=== PATIENT | female | born 2000 | race Hispanic/Latino ===

== ENCOUNTER 2022-09-23 04:34 | Emergency (ER) | payer BC ==
--- OUTSIDE RECORDS SUMMARY | 2022-09-23 04:37 | XMS REPORT | Continuity of Care Document ---
:2000 Author Organization [facility] t Address [address] [place] [address] Care Team Providers Name Role Phone Pob1, Acute Care Clinic Attending Clinician Unavailable Chance SERRANO Radha Attending Clinician RADHA FLETCHER Attending Clinician Unavailable Problems Condition Condition Condition Status Onset Resolution Last Treating Co mments Source Name Details Category Date Date Treatment Clinician Date No known No known Disease Unive rs active active ity of problems problems [facility] Allergies, Adverse Reactions, Alerts Allergy Allergy Status Severity Reaction(s) Onset Inactive Treating Comm ents Source Name Type Date Date Clinician NO KNOWN Drug Active Univers ALLERGIE Class ity of [facility] Social History Social Habit Start Date Stop Date Quantity Comments [facility] Smoking Status Start Date Stop Date Source Unknown if ever smoked [facility] Medications Ordered Filled Start Stop Current Ordering Indication Dosage Frequency Signature Comments Components Source Medication Medication Date Date Medication? Clinician (SIG) Name Name No known No Univers medications [facility] Vital Signs Vital Name Observation Time Observation Value Comments Source Systolic blood 2020-02-19 15:54:00 147 mm[Hg] Univer sity of pressure [facility] Diastolic blood 2020-02-19 15:54:00 87 mm[Hg] Unive rsity of [facility] Respiratory rate 2020-02-19 15:53:00 18 /min [facility] Body weight 2020-02-19 15:53:00 95.255 kg [facility] Oxygen saturation in 2020-02-19 15:53:00 99 /min [facility] Arterial blood by [facility] Pulse oximetry Branch Heart rate 2020-02-19 15:53:00 90 /min [facility] Body temperature 2020-02-19 15:53:00 36.83 Gricelda [facility] Procedures This patient has no known procedures. Encounters Start End Encounter Admission Attending Care Care Encounter Source Date/Time Date/Time Type Type Clinicians Facility Department ID 2020-02-19 2020-02-19 Urgent Pob1, Acute Care Clinic [facility] 1. [id number] Univers 10:42:48 11:02:48 [id number] [employer] [facility] [id number] Wero as Shavon [id number] [address] 2020-02-19 2020-02-19 Outpatient R [facility] [id number] Univers 11:00:00 11:00:00 [facility] Results This patient has no known results.
[2022-09-23] MEDS ORDERED: MORPHINE 4 MG/ML SYR ONE (04:50)
[2022-09-23] MEDS ORDERED: NA CHLORIDE 0.9% 1,000 ML ONE ×2 (04:51→08:11)
[2022-09-23] MEDS ORDERED: ONDANSETRON 4 MG/2 ML VIAL ONE ×2 (04:51→06:31)
[2022-09-23 05:35] LABS: Absolute Lymphocytes (CBC) 1.3 K/uL (0.7-4.9); Hematocrit 40.5 % (36.0-45.0); Lymphocytes % 7.4 % (15.3-44.8); MCV 78.1 fL (80-100); MPV 9.1 fL (7.6-11.3); RBC Red Blood Cell Count 5.18 M/uL (3.86-4.86)
[2022-09-23 05:49] LABS: Albumin 3.8 g/dL (3.4-5.0); Bilirubin Total 0.5 mg/dL (0.2-1.0); Potassium 3.5 mmol/L (3.5-5.1); Protein, Total 8.4 g/dL (6.4-8.2)
[2022-09-23] MEDS ORDERED: FAMOTIDINE 20 MG/2 ML VIAL IV ONE (05:49)
[2022-09-23 05:54] LABS: Urine Blood 1+ (Negative); Urine Glucose Negative (Negative); Urine Protein Negative (Negative); Urine Specific Gravity 1.025 (1.005-1.030); Urine pH 5.5 (5.0-7.0)
[2022-09-23 06:07] LABS: Urine Bacteria <20 /HPF (<20); Urine Mucus Slight /HPF (None Seen); Urine RBC <5 /HPF (None Seen)
[2022-09-23] MEDS ORDERED: CEFTRIAXONE 1000 MG/VIAL ONE (06:31)
--- NOTE | 2022-09-23 07:13 | EDPHYS ---
Physician Documentation [facility] Name: Conchis Parsons Age: 21 yrs Sex: Female : 2000 Arrival Date: 09/23/2022 Time: 04:38 Bed 5 Private MD: ED Physician Jordin Rosenberg HPI: 09/23 05:12 This 21 yrs old Female presents to ER via Ambulatory with complaints of elisa Nausea/Vomiting. 05:12 The patient presents to the emergency department with nausea, vomiting, that is elisa continuous. Onset: The symptoms/episode began/occurred 1 day(s) ago. Possible causes: unknown. The symptoms are aggravated by nothing. The symptoms are alleviated by nothing. Associated signs and symptoms: Pertinent positives: abdominal pain, nausea, vomiting. Severity of symptoms: At their worst the symptoms were mild moderate in the emergency department the symptoms are unchanged. The patient has experienced similar episodes in the past, a few times. TOEING STOCKINGS: 04:53 LMP 07/2022 kd3 Historical: - Allergies: 04:53 No Known Allergies; kd3 - Home Meds: 04:53 None [Active]; kd3 - PMHx: 04:53 None; kd3 - Immunization history:: Adult Immunizations up to date, Client reports receiving the 2nd dose of the Covid vaccine. - Social history:: Smoking status: unknown. ROS: 05:15 Constitutional: Negative for fever, chills, and weight loss, Eyes: Negative for injury, elisa pain, redness, and discharge, ENT: Negative for injury, pain, and discharge, Neck: Negative for injury, pain, and swelling, Cardiovascular: Negative for chest pain, palpitations, and edema, Respiratory: Negative for shortness of breath, cough, wheezing, and pleuritic chest pain, Back: Negative for injury and pain, : Negative for injury, bleeding, discharge, and swelling, MS/Extremity: Negative for injury and deformity, Skin: Negative for injury, rash, and discoloration, Neuro: Negative for headache, weakness, numbness, tingling, and seizure, Psych: Negative for depression, anxiety, suicide ideation, homicidal ideation, and hallucinations, Allergy/Immunology: Negative for hives, rash, and allergies, Endocrine: Negative for neck swelling, polydipsia, polyuria, polyphagia, and marked weight changes, Hematologic/Lymphatic: Negative for swollen nodes, abnormal bleeding, and unusual bruising. 05:15 Abdomen/GI: Positive for abdominal pain, nausea and vomiting, of the epigastric area and right upper quadrant. 07:15 Abdomen/GI: Positive for nausea, vomiting, diarrhea. elisa Exam: 05:15 Constitutional: This is a well developed, well nourished patient who is awake, alert, elisa and in no acute distress. Head/Face: Normocephalic, atraumatic. Eyes: Pupils equal round and reactive to light, extra-ocular motions intact. Lids and lashes normal. Conjunctiva and sclera are non-icteric and not injected. Cornea within normal limits. Periorbital areas with no swelling, redness, or edema. ENT: Nares patent. No nasal discharge, no septal abnormalities noted. Tympanic membranes are normal and external auditory canals are clear. Oropharynx with no redness, swelling, or masses, exudates, or evidence of obstruction, uvula midline. Mucous membranes moist. Neck: Trachea midline, no thyromegaly or masses palpated, and no cervical lymphadenopathy. Supple, full range of motion without nuchal rigidity, or vertebral point tenderness. No Meningismus. Chest/axilla: Normal chest wall appearance and motion. Nontender with no deformity. No lesions are appreciated. Cardiovascular: Regular rate and rhythm with a normal S1 and S2. No gallops, murmurs, or rubs. Normal PMI, no JVD. No pulse deficits. Respiratory: Lungs have equal breath sounds bilaterally, clear to auscultation and percussion. No rales, rhonchi or wheezes noted. No increased work of breathing, no retractions or nasal flaring. Back: No spinal tenderness. No costovertebral tenderness. Full range of motion. Female : Normal external genitalia. Skin: Warm, dry with normal turgor. Normal color with no rashes, no lesions, and no evidence of cellulitis. MS/ Extremity: Pulses equal, no cyanosis. Neurovascular intact. Full, normal range of motion. Neuro: Awake and alert, GCS 15, oriented to person, place, time, and situation. Cranial nerves II-XII grossly intact. Motor strength 5/5 in all extremities. Sensory grossly intact. Cerebellar exam normal. Normal gait. Psych: Awake, alert, with orientation to person, place and time. Behavior, mood, and affect are within normal limits. 05:15 Abdomen/GI: Inspection: abdomen appears normal, Bowel sounds: normal, Palpation: moderate abdominal tenderness, in the epigastric area and right upper quadrant, Liver: no appreciated palpable abnormalities, Hernia: not appreciated. Vital Signs: 04:49 BP 140 / 77; Pulse 123; Resp 21; Temp 98.1(O); Pulse Ox 100% on R/A; Weight 108.86 kg; kd3 Height 5 ft. 1 in. (154.94 cm); 05:30 BP 138 / 72; Pulse 108; Resp 19; Pulse Ox 99% on R/A; aa9 07:00 BP 132 / 75; Pulse 105; Resp 18 S; Pulse Ox 100% on R/A; as6 08:36 BP 127 / 75; Pulse 110; Resp 17; ll1 10:06 BP 134 / 91; Pulse 100; Resp 17; Pulse Ox 100% ; Pain 4/10; ll1 04:49 Body Mass Index 45.35 (108.86 kg, 154.94 cm) kd3 MDM: 04:40 Patient medically screened. [facility] 05:18 Differential diagnosis: Nonspecific abd pain, gastritis, cholecystitis, pancreatitis, elisa diverticulitis, gastroenteritis. Data reviewed: vital signs, nurses notes, lab test result(s), radiologic studies, CT scan, plain films. Consideration of Admission/Observation Patient was admitted/placed on observation. Escalation of care including admission/observation considered. I considered the following discharge prescriptions or medication management in the emergency department Medications were administered in the Emergency Department. See OCT. 09/23 04:44 Order name: CBC with Diff; Complete Time: 05:43 [facility] 09/23 04:44 Order name: CMP; Complete Time: 05:53 [facility] 09/23 04:44 Order name: Lipase; Complete Time: 05:53 [facility] 09/23 04:44 Order name: Urine Microscopic Only; Complete Time: 06:25 [facility] 09/23 05:54 Order name: Urine Dipstick-Ancillary; Complete Time: 06:25 [facility] 09/23 04:57 Order name: CT Abd/Pelvis - IV Contrast Only [facility] 09/23 04:57 Order name: US Abdomen Limited [facility] 09/23 06:10 Order name: Urine Culture [facility] 09/23 04:44 Order name: IV Saline Lock; Complete Time: 05:03 [facility] 09/23 04:44 Order name: Labs collected and sent; Complete Time: 05:03 [facility] 09/23 04:44 Order name: Urine Dipstick-Ancillary (obtain specimen); Complete Time: 05:54 [facility] 09/23 04:44 Order name: Urine Test (obtain specimen); Complete Time: 05:54 [facility] Administered Medications: 04:52 Drug: Zofran (Ondansetron) 4 mg Route: IVP; Site: right antecubital; aa9 05:31 Follow up: Response: No adverse reaction kd3 04:56 Drug: morphine 4 mg Route: IVP; Infused Over: 4 mins; Site: right antecubital; aa9 05:31 Follow up: Response: No adverse reaction kd3 05:02 Drug: NS 0.9% 1000 ml Route: IV; Rate: 1 bolus; Site: right antecubital; aa9 07:21 Follow up: Response: No adverse reaction; IV Status: Completed infusion; IV Intake: ll1 1000ml 05:54 Drug: Pepcid (famotidine) 20 mg Route: IVP; Site: right antecubital; aa9 07:21 Follow up: Response: No adverse reaction ll1 06:33 Drug: Zofran (Ondansetron) 4 mg Route: IVP; Site: right antecubital; as6 07:22 Follow up: Response: No adverse reaction; Nausea unchanged; RASS: Alert and Calm (0) ll1 06:33 Drug: Rocephin (cefTRIAXone) 1 grams Route: IV; Rate: per protocol; Site: right as6 antecubital; 07:22 Follow up: Response: No adverse reaction; IV Status: Completed infusion; IV Intake: [id number] 07:21 Drug: Phenergan (promethazine) 25 mg Route: IM; Site: right gluteus; ll1 08:13 Follow up: Response: No adverse reaction; Nausea unchanged; RASS: Alert and Calm (0) ll1 08:10 Drug: NS 0.9% 1000 ml Route: IV; Rate: 1 bolus; Site: right antecubital; ll1 10:06 Follow up: Response: No adverse reaction; IV Status: Completed infusion; IV Intake: ll1 1000ml 08:10 Drug: Reglan (metoCLOPramide) 10 mg Route: IVP; Site: right antecubital; ll1 10:06 Follow up: Response: No adverse reaction; Nausea is decreased; RASS: Alert and Calm (0) ll1 Disposition Summary: 09/23/22 07:11 Discharge Ordered Location: Home elisa Problem: new elisa Symptoms: have improved elisa Condition: Stable elisa Diagnosis - Epigastric abdominal tenderness elisa - Vomiting elisa - Elevated white blood cell count elisa - UTI/ Urinary tract infection, site not specified elisa - Diarrhea, unspecified elisa Followup: elisa - With: Private Physician - When: 2 - 3 days - Reason: Recheck today's complaints, Re-evaluation by your physician Followup: elisa - With: - When: 2 - 3 days - Reason: Recheck today's complaints, Re-evaluation by your physician Discharge Instructions: - Discharge Summary Sheet elisa - Abdominal Pain, Adult elisa - Abdominal Pain, Adult, Qswl-di-Wpyo elisa - Urinary Tract Infection, Adult elisa - Urinary Tract Infection, Adult, Otld-zl-Cvki elisa - Diarrhea, Adult elisa - Vomiting, Adult elisa Forms: - Medication Reconciliation Form [facility] - Thank You Letter [facility] - Antibiotic Education [facility] - Prescription Opioid Use [facility] - Work release form ll1 Prescriptions: - Pepcid 20 mg Oral Tablet - take 1 tablet by ORAL route every 12 hours for 10 days; 20 tablet; Refills: 0, [facility] Product Selection Permitted - Zofran 4 mg Oral Tablet - take 1 tablet by ORAL route every 12 hours As needed; 20 tablet; Refills: 0, [facility] Product Selection Permitted - dicyclomine 20 mg Oral Tablet - take 1 tablet by ORAL route 4 times per day; 28 tablet; Refills: 0, Product [facility] Selection Permitted - promethazine 25 mg Oral Tablet - take 1 tablet by ORAL route every 6 hours As needed; 20 tablet; Refills: 0, [facility] Product Selection Permitted - Cipro 250 mg Oral Tablet - take 1 tablet by ORAL route every 12 hours; 14 tablet; Refills: 0, Product [facility] Selection Permitted Signatures: Dispatcher [employer] Jordin Zavala MD MD cha Lewis, Lynsay RN RN ll1 Malachi Machado RN RN as6 Brittany Bermudez RN RN kd3 Elise Goyal RN RN aa9
--- NOTE | 2022-09-23 07:13 | ER ---
Nurse's Notes [facility] Name: Conchis Parsons Age: 21 yrs Sex: Female : 2000 Arrival Date: 09/23/2022 Time: 04:38 Bed 5 Private MD: Diagnosis: Epigastric abdominal tenderness;Vomiting;Elevated white blood cell count;UTI/ Urinary tract infection, site not specified;Diarrhea, unspecified Presentation: 09/23 04:49 Chief complaint: Patient states: Last night my stomach started hurting and i went to 3 bed to try and ignore it because i needed to go to work today. I woke back up around 2 this morning and started to vomit and have diarrhea. I had some pretty intense vomiting and i felt like i couldn't catch my breath. Now i feel like my stomach is having spasms. Coronavirus screen: Vaccine status: Patient reports receiving the 2nd dose of the covid vaccine. Coronavirus screen: Vaccine status: Patient reports receiving the 2nd dose of the covid vaccine. [employer]. Ebola Screen: No symptoms or risks identified at this time. Initial Sepsis Screen: Does the patient meet any 2 criteria? HR > 90 bpm. No. Patient's initial sepsis screen is negative. Does the patient have a suspected source of infection? No. Patient's initial sepsis screen is negative. Risk Assessment: Do you want to hurt yourself or someone else? Patient reports no desire to harm self or others. Onset of symptoms was September 23, 2022. 04:49 Method Of Arrival: Ambulatory kd3 04:49 Acuity: SHARRI 3 kd3 Triage Assessment: 04:53 General: Appears uncomfortable, Behavior is calm, cooperative. Pain: Complains of pain kd3 in epigastric area. Neuro: Level of Consciousness is awake, alert, obeys commands, Oriented to person, place, time, situation. GI: Reports nausea, vomiting. COUNCILPERSON: 04:53 LMP 07/2022 kd3 Historical: - Allergies: 04:53 No Known Allergies; kd3 - Home Meds: 04:53 None [Active]; kd3 - PMHx: 04:53 None; kd3 - Immunization history:: Adult Immunizations up to date, Client reports receiving the 2nd dose of the Covid vaccine. - Social history:: Smoking status: unknown. Screenin:[facility] ED Fall Risk Assessment (Adult) History of falling in the last 3 months, aa9 including since admission No falls in past 3 months (0 pts) Confusion or Disorientation No (0 pts) Intoxicated or Sedated No (0 pts) Impaired Gait No (0 pts) Mobility Assist Device Used No (0 pt) Altered Elimination No (0 pt) Score/Fall Risk Level 0 - 2 = Low Risk Oriented to surroundings, Maintained a safe environment. Abuse screen: Denies threats or abuse. Denies injuries from another. Nutritional screening: Has had N/V for 3 or more days. Tuberculosis screening: No symptoms or risk factors identified. Assessment: 05:04 General: Appears in no apparent distress. uncomfortable, Behavior is cooperative, aa9 anxious. Neuro: Level of Consciousness is awake, alert, obeys commands, Oriented to person, place, time, situation. Cardiovascular: Patient's skin is warm and dry. Respiratory: Airway is patent Respiratory effort is even, unlabored. GI: Abdomen is obese, Reports diarrhea, nausea, vomiting. : No signs and/or symptoms were reported regarding the genitourinary system. Derm: Skin is intact, is healthy with good turgor. Musculoskeletal: No signs and/or symptoms reported regarding the musculoskeletal system. 05:56 Reassessment: Patient appears in no apparent distress at this time. Patient is alert, aa9 oriented x 3, equal unlabored respirations, skin warm/dry/pink. Patient states feeling better. 07:02 GI: Reports nausea. as6 07:56 Reassessment: No changes from previously documented assessment. Patient and/or family ll1 updated on plan of care and expected duration. Pain level reassessed. Patient is alert, oriented x 3, equal unlabored respirations, skin warm/dry/pink. 08:31 Reassessment: No changes from previously documented assessment. Patient and/or family ll1 updated on plan of care and expected duration. Pain level reassessed. Patient is alert, oriented x 3, equal unlabored respirations, skin warm/dry/pink. 09:02 Reassessment: No changes from previously documented assessment. Patient and/or family ll1 updated on plan of care and expected duration. Pain level reassessed. Patient states feeling better. Patient states symptoms have improved. 10:00 Reassessment: No changes from previously documented assessment. Patient and/or family ll1 updated on plan of care and expected duration. Pain level reassessed. Patient is alert, oriented x 3, equal unlabored respirations, skin warm/dry/pink. Vital Signs: 04:49 BP 140 / 77; Pulse 123; Resp 21; Temp 98.1(O); Pulse Ox 100% on R/A; Weight 108.86 kg; kd3 Height 5 ft. 1 in. (154.94 cm); 05:30 BP 138 / 72; Pulse 108; Resp 19; Pulse Ox 99% on R/A; aa9 07:00 BP 132 / 75; Pulse 105; Resp 18 S; Pulse Ox 100% on R/A; as6 08:36 BP 127 / 75; Pulse 110; Resp 17; ll1 10:06 BP 134 / 91; Pulse 100; Resp 17; Pulse Ox 100% ; Pain 4/10; ll1 04:49 Body Mass Index 45.35 (108.86 kg, 154.94 cm) kd3 ED Course: 04:38 Patient arrived in ED. ag3 04:40 Jordin Rosenberg MD is Attending Physician. elisa 04:50 Inserted saline lock: 20 gauge in right antecubital area, using aseptic technique. aa9 Blood collected. 04:53 Triage completed. kd3 04:53 Arm band placed on right wrist. kd3 05:03 CBC with Diff Sent. aa9 05:03 CMP Sent. aa9 05:03 Lipase Sent. aa9 05:04 Patient has correct armband on for positive identification. Placed in gown. Bed in low aa9 position. Adult w/ patient. 05:34 US Abdomen Limited In Process Unspecified. EDMS 06:17 CT Abd/Pelvis - IV Contrast Only In Process Unspecified. EDMS 06:26 Malachi Machado, RN is Primary Nurse. as6 07:10 Primary Nurse role handed off by Malachi Machado, NUBIA ll1 07:10 Neris Hanson RN is Primary Nurse. ll1 07:11 Hira Corral MD is Referral Physician. elisa 07:11 Referral Physician role handed off by Hira Corral MD elisa 10:07 No provider procedures requiring assistance completed. IV discontinued, intact, ll1 bleeding controlled, No redness/swelling at site. Pressure dressing applied. Administered Medications: 04:52 Drug: Zofran (Ondansetron) 4 mg Route: IVP; Site: right antecubital; aa9 05:31 Follow up: Response: No adverse reaction kd3 04:56 Drug: morphine 4 mg Route: IVP; Infused Over: 4 mins; Site: right antecubital; aa9 05:31 Follow up: Response: No adverse reaction kd3 05:02 Drug: NS 0.9% 1000 ml Route: IV; Rate: 1 bolus; Site: right antecubital; aa9 07:21 Follow up: Response: No adverse reaction; IV Status: Completed infusion; IV Intake: ll1 1000ml 05:54 Drug: Pepcid (famotidine) 20 mg Route: IVP; Site: right antecubital; aa9 07:21 Follow up: Response: No adverse reaction ll1 06:33 Drug: Zofran (Ondansetron) 4 mg Route: IVP; Site: right antecubital; as6 07:22 Follow up: Response: No adverse reaction; Nausea unchanged; RASS: Alert and Calm (0) ll1 06:33 Drug: Rocephin (cefTRIAXone) 1 grams Route: IV; Rate: per protocol; Site: right as6 antecubital; 07:22 Follow up: Response: No adverse reaction; IV Status: Completed infusion; IV Intake: 20ohhd1 07:21 Drug: Phenergan (promethazine) 25 mg Route: IM; Site: right gluteus; ll1 08:13 Follow up: Response: No adverse reaction; Nausea unchanged; RASS: Alert and Calm (0) ll1 08:10 Drug: NS 0.9% 1000 ml Route: IV; Rate: 1 bolus; Site: right antecubital; ll1 10:06 Follow up: Response: No adverse reaction; IV Status: Completed infusion; IV Intake: ll1 1000ml 08:10 Drug: Reglan (metoCLOPramide) 10 mg Route: IVP; Site: right antecubital; ll1 10:06 Follow up: Response: No adverse reaction; Nausea is decreased; RASS: Alert and Calm (0) ll1 Medication: 07:56 VIS not applicable for this client. ll1 Intake: 07:21 IV: 1000ml; Total: 1000ml. ll1 07:22 IV: 50ml; Total: 1050ml. ll1 10:06 IV: 1000ml; Total: 2050ml. ll1 Outcome: 07:11 Discharge ordered by . elisa 10:07 Discharged to home ambulatory. ll1 10:07 Condition: stable 10:07 Discharge instructions given to patient, Instructed on discharge instructions, follow up and referral plans. no drinking with medication, no driving heavy equipment, medication usage, Demonstrated understanding of instructions, follow-up care, medications, Prescriptions given X x 5 10:07 Patient left the ED. ll1 Signatures: Dispatcher [employer] EDNM Jordin Rosenberg MD MD cha Gomez, Alice ag3 Neris Hanson RN RN ll1 Malachi Machado RN RN as6 Brittany Bermudez RN RN kd3 Elise Goyal, RN RN aa9
[2022-09-23] MEDS ORDERED: PROMETHAZINE INJ 25 MG/ML AMP ONE (07:21)
[2022-09-23] MEDS ORDERED: METOCLOPRAMIDE 10 MG/2mL INJ ONE (08:11)
[2022-09-23 10:30] VITALS: O2SAT 100
[2022-09-23 10:32] VITALS: BP 134/91
--- NOTE | 2022-09-23 12:21 | RAD REPORT ---
EXAM DESCRIPTION: CT - Abdomen Pelvis W Contrast - 09/23/2022 6:37 am CLINICAL HISTORY: 21 years Female Abdominal pain, acute, nonlocalized COMPARISON: None TECHNIQUE: CT of the abdomen and pelvis with intravenous contrast. All CT scans at this facility use dose modulation, iterative reconstruction, and/or weight based dosi ng when appropriate to reduce radiation dose to as low as reasonably achievable. FINDINGS: Lower thorax: Lung bases are clear Abdomen: Stomach: Within normal limits Liver: No focal lesions. No intrahepatic ductal distention. Gallbladder: Nondistended Pancreas: Within normal limits Spleen: Within normal limits Right kidney: No hydronephrosis. No focal lesion. Left kidney: No hydronephrosis. No focal lesion. Adrenal glands: Within normal limits Vascular structures: Within normal limits Nodes: No lymphadenopathy by size criteria Pelvis: Small bowel: No significant distention. Appendix: Within normal limits Colon: No distention or acute pericolonic edema. Peritoneum: No free intraperitoneal fluid or air. Bones: No acute bone findings. Bladder: Unremarkable. Reproductive organs: No acute findings. IMPRESSION: No acute abdominopelvic findings. Electronically signed by: Aimee Raines MD 09/23/2022 6:26 AM DIRECTOR OF OFFICIATING Due to temporary technical issues with the PACS/Fluency reporting system, reports are being signed by the in house radiologists without review as a courtesy to insure prompt reporting. The interpreting radiologist is fully responsible for the content of the report.
--- NOTE | 2022-09-23 12:23 | RAD REPORT ---
EXAM DESCRIPTION: US - Abdomen Exam Limited - 09/23/2022 5:32 am CLINICAL HISTORY: 21 years Female ABD PAIN COMPARISON: None TECHNIQUE: Limited gallbladder ultrasound was performed. FINDINGS: No gallstones. Gallbladder wall measures 2 mm. Common bile duct measures 4 mm. No free fluid seen. IMPRESSION: No sonographic evidence of cholelithiasis or acute cholecystitis. Electronically signed by: Aimee Raines MD 09/23/2022 5:53 AM SENIOR HEALTH EDUCATOR Due to temporary technical issues with the PACS/Fluency reporting system, reports are being signed by the in house radiologists without review as a courtesy to insure prompt reporting. The interpreting radiologist is fully responsible for the content of the report.
== END 2022-09-23 10:07 | disposition home or self-care (01) ==
LOC: ER 04:34
DX: R10.816 Epigastric abdominal tenderness (principal); N39.0 Urinary tract infection, site not specified; D72.829 Elevated white blood cell count, unspecified; R11.10 Vomiting, unspecified; R19.7 Diarrhea, unspecified
CPT/HCPCS: 87088; 85025; 87086; 36415; 83690; 80053; 74177; 76705; Q9967; J2765; J2550; J7030 ×2; J2405 ×2; 81003; 81015

== ENCOUNTER 2024-04-27 06:00 | Emergency (ER) | payer BC ==
[2024-04-27] MEDS ORDERED: ONDANSETRON 4 MG/2 ML VIAL ONE (06:29)
[2024-04-27] MEDS ORDERED: NA CHLORIDE 0.9% 1,000 ML ONE ×2 (06:30→06:49)
[2024-04-27] MEDS ORDERED: PROMETHAZINE INJ 25 MG/ML AMP ONE (06:49)
[2024-04-27 06:52] LABS: Absolute Eosinophils 0.1 K/uL (0-0.5); Absolute Lymphocytes (CBC) 0.7 K/uL (0.7-4.9); Absolute Monocytes 0.6 K/uL (0.1-1.3); Basophils % 0.4 % (0-1.3); Eosinophils % 1.2 % (0-4.4); Hematocrit 37.5 % (36.0-45.0); Hemoglobin 12.5 g/dL (12.0-15.0); MCH 27.4 pg (27.0-35.0); MCHC 33.4 g/dL (32.0-36.0); MCV 82.1 fL (80-100); MPV 8.7 fL (7.6-11.3); Monocytes % 5.4 % (3.3-12.3); Nucleated Red Blood Cells % 0.1 % (0-0); Platelets 351 thou/uL (152-406); RBC Red Blood Cell Count 4.57 M/uL (3.86-4.86); Red Cell Distribution Width 14.8 % (12.1-15.2)
[2024-04-27 06:57] LABS: Specific Gravity 1.016 (1.005-1.030); Sqamous Epithelial <5 /HPF (None Seen); Urine Bacteria <20 /HPF (<20); Urine Bilirubin NEGATIVE (Negative); Urine Blood Negative (Negative); Urine Clarity Turbid (Clear); Urine Color Light-Yellow (Yellow); Urine Culture Reflex Order NOT NEEDED; Urine Glucose NEGATIVE (Negative); Urine Ketones NEGATIVE (Negative); Urine Microscopic Reflex YN ORDER UMIC; Urine Mucus Slight /HPF (None Seen); Urine Nitrite NEGATIVE (Negative); Urine Protein NEGATIVE (Negative); Urine RBC <5 /HPF (None Seen); Urine Urobilinogen Normal (Normal); Urine WBC <5 /HPF (<5); Urine pH 5.5 (5.0-7.0)
[2024-04-27 07:00] LABS: Specific Gravity 1.016 (1.005-1.030)
[2024-04-27 07:10] LABS: ALT/SGPT 23 U/L (13-56); Albumin 3.7 g/dL (3.4-5.0); Albumin/Globulin Ratio 0.9 (1.1-1.8); Alkaline Phosphatase 73 U/L (45-117); Anion Gap 9.7 mEq/L (5.0-15.0); BUN Blood Urea Nitrogen 8 mg/dL (7-18); Bicarbonate 25 mEq/L (21-32); Bilirubin Total 1.3 mg/dL (0.2-1.0); Globulin 4.1 g/dL (2.3-3.5); Glomerular Filtration Rate 102 ml/min (=/>90); Glucose Level 119 mg/dL (74-106); Lipase 25 U/L (13-75); Potassium 3.7 mEq/L (3.5-5.1); Protein, Total 7.8 g/dL (6.4-8.2); Sodium Level 140 mEq/L (136-145)
[2024-04-27 07:12] LABS: AST/SGOT < 10 U/L (15-37)
[2024-04-27] MEDS ORDERED: FAMOTIDINE 20 MG/2 ML VIAL IV ONE (07:20)
[2024-04-27 07:39] LABS: Blood Morphology Comment NOTED (NOT SEEN); Platelet Estimate ADEQ; Rouleau NOTED; White Blood Cell Scan OK (OK)
[2024-04-27 07:40] LABS: Stomatocytes 1+
--- NOTE | 2024-04-27 09:04 | ER ---
Nurse's Notes [facility] Name: Conchis Parsons Age: 23 yrs Sex: Female : 2000 Arrival Date: 04/27/2024 Time: 06:00 Bed 5 Private MD: Diagnosis: Vomiting;Nausea with vomiting, unspecified;Diarrhea, unspecified;Dehydration Presentation: 04/27 06:14 Chief complaint: Patient states: I have been vomiting and had diarrhea all night. I vc1 have went so much it is now coming out clear. Two weeks ago I had diarrhea for over a week so I am concerned that I may be dehydrated. Coronavirus screen: Client denies travel out of the [place] in the last 14 days. At this time, the client does not indicate any symptoms associated with coronavirus-19. Ebola Screen: Patient negative for fever greater than or equal to 101.5 degrees Fahrenheit, and additional compatible Ebola Virus Disease symptoms Patient denies exposure to infectious person. Patient denies travel to an Ebola-affected area in the 21 days before illness onset. No symptoms or risks identified at this time. Initial Sepsis Screen: Does the patient meet any 2 criteria? HR > 90 bpm. No. Patient's initial sepsis screen is negative. Does the patient have a suspected source of infection? No. Patient's initial sepsis screen is negative. Risk Assessment: Do you want to hurt yourself or someone else? Patient reports no desire to harm self or others. 06:14 Method Of Arrival: Ambulatory vc1 06:14 Acuity: SHARRI 3 vc1 06:21 Onset of symptoms was April 26, 2024. Care prior to arrival: None. Activity prior vc1 to arrival: vomiting. Triage Assessment: 06:18 General: Appears in no apparent distress. uncomfortable, obese, well groomed, well vc1 developed, Behavior is calm, cooperative, appropriate for age. Pain: Complains of pain in abdomen Pain does not radiate. Pain currently is 8 out of 10 on a pain scale. Quality of pain is described as crampy, squeezing, Pain began suddenly, Is continuous, Also complains of nausea, vomiting and diarrhea. EENT: No deficits noted. No signs and/or symptoms were reported regarding the EENT system. Neuro: Level of Consciousness is awake, alert, obeys commands, Oriented to person, place, time, situation, Appropriate for age. Cardiovascular: Heart tones S1 S2 Capillary refill < 3 seconds Patient's skin is warm and dry. Rhythm is sinus tachycardia. Respiratory: Airway is patent Respiratory effort is even, unlabored, Respiratory pattern is regular, symmetrical, Breath sounds are clear bilaterally. GI: Abdomen is round non-distended, Bowel sounds present X 4 quads. Abd is soft Abdomen is tender to palpation X 4 quads. Reports lower abdominal pain, upper abdominal pain, diarrhea, intolerance of fluids, intolerance of food, nausea, vomiting. : No deficits noted. No signs and/or symptoms were reported regarding the genitourinary system. Derm: Skin is intact, Skin is dry, Skin is normal, Skin temperature is warm. Musculoskeletal: Circulation, motion, and sensation intact. Range of motion: intact in all extremities. 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 - Infectious Disease History:: Denies. - Social history:: Smoking status: Patient denies any tobacco usage or history of. Screenin:18 [facility] ED Fall Risk Assessment (Adult) History of falling in the last 3 months, vc1 including since admission No falls in past 3 months (0 pts) Confusion or Disorientation No (0 pts) Intoxicated or Sedated No (0 pts) Impaired Gait No (0 pts) Mobility Assist Device Used No (0 pt) Altered Elimination Yes (1 pt) Score/Fall Risk Level 0 - 2 = Low Risk Oriented to surroundings, Maintained a safe environment, Educated pt \T\ family on fall prevention, incl call for assistance when getting out of bed. Abuse screen: Denies threats or abuse. Nutritional screening: No deficits noted. Tuberculosis screening: No symptoms or risk factors identified. Assessment: 06:48 General: see triage assessment. vc1 07:04 Reassessment: Patient and/or family updated on plan of care and expected duration. Pain vc1 level reassessed. Patient states feeling better. Patient states symptoms have improved. 08:01 General: Appears in no apparent distress. comfortable, Behavior is calm, cooperative. rs5 Pain: Denies pain. Neuro: Level of Consciousness is awake, alert, obeys commands, Oriented to person, place, time, situation. Cardiovascular: Patient's skin is warm and dry. Respiratory: Airway is patent Respiratory effort is even, unlabored, Respiratory pattern is regular, symmetrical. GI: Abdomen is round non-distended, Abd is soft and non tender X 4 quads. : No signs and/or symptoms were reported regarding the genitourinary system. EENT: No signs and/or symptoms were reported regarding the EENT system. Derm: Skin is intact, Skin is pink, warm \T\ dry. Musculoskeletal: Range of motion: intact in all extremities. 09:21 Reassessment: No changes from previously documented assessment. rs5 Vital Signs: 06:14 BP 116 / 61; Pulse 119; Resp 18; Temp 98.4; Pulse Ox 100% ; Weight 101.15 kg; Height 5 vc1 ft. 2 in. ; Pain 8/10; 07:03 BP 130 / 77; Pulse 110; Resp 17; Pulse Ox 100% ; vc1 07:30 BP 144 / 83; Pulse 91; Resp 17; Pulse Ox 99% on R/A; rs5 09:29 BP 135 / 81; Pulse 88; Resp 17; Pulse Ox 99% on R/A; rs5 06:14 Body Mass Index 40.79 (101.15 kg, 157.48 cm) vc1 06:14 Pain Scale: Adult vc1 ED Course: 06:02 Patient arrived in ED. [email or web address] 06:08 Jordin Rosenberg MD is Attending Physician. [facility] 06:17 Triage completed. vc1 06:18 Arm band placed on right wrist. vc1 06:18 Patient has correct armband on for positive identification. Bed in low position. Call vc1 light in reach. Pulse ox on. NIBP on. 06:47 Initial lab(s) drawn, by me, Urine collected: clean catch specimen, cloudy. Inserted vc1 saline lock: 20 gauge in right antecubital area, using aseptic technique. Blood collected. Flushed with 10 mL NS. 06:54 Chelsea Ratliff RN is Primary Nurse. vc1 07:00 Fecal Leukocyte Stain Sent. vc1 07:00 Stool Culture Sent. vc1 07:36 Attending Physician role handed off by Jordin Rosenberg MD ms3 07:36 Nate Rodríguez DO is Attending Physician. ms3 09:03 Aiden Valiente MD is Referral Physician. ms3 09:29 No provider procedures requiring assistance completed. IV discontinued, intact, rs5 bleeding controlled, No redness/swelling at site. Pressure dressing applied. Administered Medications: 06:46 Drug: NS 0.9% IV 1000 ml IV at 1 bolus Per protocol; 1000 mL bolus Route: IV; Rate: 1 vc1 bolus; Site: right antecubital; 08:01 Follow up: Response: No adverse reaction; IV Status: Completed infusion rs5 06:47 Drug: Ondansetron IVP 4 mg IVP once; over 2 minutes Route: IVP; Site: right antecubital;vc1 06:55 Follow up: Response: No adverse reaction; Nausea is decreased vc1 06:54 Drug: NS 0.9% IV 1000 ml IV at 1 bolus Per protocol; 1000 mL bolus Route: IV; Rate: 1 vc1 bolus; Site: right antecubital; 08:01 Follow up: IV Status: Completed infusion rs5 06:54 Drug: Promethazine IVP 25 mg IVP once; add to second liter bolus {Note: diluted in 10cc vc1 NS.} Route: IVP; Site: right antecubital; 07:20 Follow up: Response: No adverse reaction; Nausea is decreased rs5 07:31 Drug: Famotidine IVP 20 mg IVP once; dilute with 10 mL 0.9% NaCl; give over 2 minutes rs5 Route: IVP; Site: right antecubital; 09:31 Follow up: Response: No adverse reaction rs5 Medication: 06:21 VIS not applicable for this client. vc1 Outcome: 09:04 Discharge ordered by . ms3 09:31 Discharged to home ambulatory, rs5 09:31 Condition: stable 09:31 Discharge instructions given to patient, family, Instructed on discharge instructions, follow up and referral plans. medication usage, Demonstrated understanding of instructions, follow-up care, medications, Prescriptions given X 4, 09:31 Patient left the ED. rs5 Signatures: Jordin Rosenberg MD MD cha Sims, Marcus, DO DO ms3 Genoveva Fisher [email or web address] Chelsea Ratliff RN RN vc1 Alfredo, Jose, RN RN rs5
--- NOTE | 2024-04-27 09:04 | EDPHYS ---
Physician Documentation [facility] Name: Conchis Parsons Age: 23 yrs Sex: Female : 2000 Arrival Date: 04/27/2024 Time: 06:00 Bed 5 Private MD: ED Physician Nate Rodríguez HPI: 04/27 06:31 This 23 yrs old Female presents to ER via Ambulatory with complaints of elisa Nausea/Vomiting/Diarrhea. 06:31 The patient presents to the emergency department with nausea, vomiting, that is elisa continuous. Onset: The symptoms/episode began/occurred 2 day(s) ago. Possible causes: unknown. The symptoms are aggravated by food , The symptoms are alleviated by nothing. Associated signs and symptoms: Pertinent positives: diarrhea, nausea, vomiting. Severity of symptoms: At their worst the symptoms were moderate in the emergency department the symptoms are unchanged. The patient has experienced similar episodes in the past, several times. 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 - Infectious Disease History:: Denies. - Social history:: Smoking status: Patient denies any tobacco usage or history of. ROS: 06:32 Constitutional: Negative for fever, chills, and weight loss, Eyes: Negative for injury, elisa pain, redness, and discharge, ENT: Negative for injury, pain, and discharge, Neck: Negative for injury, pain, and swelling, Cardiovascular: Negative for chest pain, palpitations, and edema, Respiratory: Negative for shortness of breath, cough, wheezing, and pleuritic chest pain, Back: Negative for injury and pain, : Negative for injury, bleeding, discharge, and swelling, MS/Extremity: Negative for injury and deformity, Skin: Negative for injury, rash, and discoloration, Psych: Negative for depression, anxiety, suicide ideation, homicidal ideation, and hallucinations, Allergy/Immunology: Negative for hives, rash, and allergies, Endocrine: Negative for neck swelling, polydipsia, polyuria, polyphagia, and marked weight changes, 06:32 Abdomen/GI: Positive for abdominal pain, nausea and vomiting, diarrhea, Exam: 06:32 Constitutional: This is a well developed, well nourished patient who is awake, alert, elisa and in no acute distress. Head/Face: Normocephalic, atraumatic. Eyes: Pupils equal round and reactive to light, extra-ocular motions intact. Lids and lashes normal. Conjunctiva and sclera are non-icteric and not injected. Cornea within normal limits. Periorbital areas with no swelling, redness, or edema. ENT: Nares patent. No nasal discharge, no septal abnormalities noted. Tympanic membranes are normal and external auditory canals are clear. Oropharynx with no redness, swelling, or masses, exudates, or evidence of obstruction, uvula midline. Mucous membranes moist. Neck: Trachea midline, no thyromegaly or masses palpated, and no cervical lymphadenopathy. Supple, full range of motion without nuchal rigidity, or vertebral point tenderness. No Meningismus. Chest/axilla: Normal chest wall appearance and motion. Nontender with no deformity. No lesions are appreciated. Respiratory: Lungs have equal breath sounds bilaterally, clear to auscultation and percussion. No rales, rhonchi or wheezes noted. No increased work of breathing, no retractions or nasal flaring. Abdomen/GI: Soft, non-tender, with normal bowel sounds. No distension or tympany. No guarding or rebound. No evidence of tenderness throughout. Back: No spinal tenderness. No costovertebral tenderness. Full range of motion. Skin: Warm, dry with normal turgor. Normal color with no rashes, no lesions, and no evidence of cellulitis. MS/ Extremity: Pulses equal, no cyanosis. Neurovascular intact. Full, normal range of motion. Neuro: Awake and alert, GCS 15, oriented to person, place, time, and situation. Cranial nerves II-XII grossly intact. Motor strength 5/5 in all extremities. Sensory grossly intact. Cerebellar exam normal. Normal gait. Psych: Awake, alert, with orientation to person, place and time. Behavior, mood, and affect are within normal limits. 06:32 Cardiovascular: Rate: tachycardic, actual rate is 119 bpm, Rhythm: regular, Pulses: Pulses are 4+ in bilateral radial, brachial, femoral, popliteal, posterior tibial and and dorsalis pedis arteries.. Heart sounds: normal, Edema: is not appreciated, JVD: is not appreciated, Vital Signs: 06:14 BP 116 / 61; Pulse 119; Resp 18; Temp 98.4; Pulse Ox 100% ; Weight 101.15 kg; Height 5 vc1 ft. 2 in. ; Pain 8/10; 07:03 BP 130 / 77; Pulse 110; Resp 17; Pulse Ox 100% ; vc1 07:30 BP 144 / 83; Pulse 91; Resp 17; Pulse Ox 99% on R/A; rs5 09:29 BP 135 / 81; Pulse 88; Resp 17; Pulse Ox 99% on R/A; rs5 06:14 Body Mass Index 40.79 (101.15 kg, 157.48 cm) vc1 06:14 Pain Scale: Adult vc1 MDM: 06:08 Patient medically screened. [facility] 06:33 Differential diagnosis: Nonspecific abd pain, gastritis, pancreatitis, diverticulitis, elisa viral gastroenteritis, gastroenteritis. Data reviewed: vital signs, nurses notes, lab test result(s), radiologic studies, plain films. Consideration of Admission/Observation Escalation of care including admission/observation considered. I considered the following discharge prescriptions or medication management in the emergency department Medications were administered in the Emergency Department. See MAR. Test considered but Not performed: CT: no ct abd pelvis. Historians other than the Patient: pt well informed. Care significantly affected by the following chronic conditions: Obesity, none. Counseling: I had a detailed discussion with the patient and/or guardian regarding the historical points, exam findings, and any diagnostic results supporting the discharge/admit diagnosis, lab results, the need for outpatient follow up, for definitive care, a family practitioner, a director career services. 07:00 Transition of care: Care assumed from Jordin Rosenberg MD. ED course: On reevaluation ms3 patient symptoms improved, patient is alert and oriented x 4, no apparent distress, nontoxic-appearing, speaking full sentences. Patient to follow-up with primary care physician as instructed. All questions were answered. Return precautions discussed include worsening symptoms, or any other concerns.. 04/27 06:09 Order name: CBC with Diff; Complete Time: 09:03 elisa 04/27 06:09 Order name: Comprehensive Metabolic Panel; Complete Time: 07:36 [facility] 04/27 06:09 Order name: Lipase; Complete Time: 07:36 [facility] 04/27 06:09 Order name: Urinalysis w/ reflexes; Complete Time: 07:06 [facility] 04/27 06:09 Order name: PREGU; Complete Time: 07:06 [facility] 04/27 06:46 Order name: Fecal Leukocyte Stain [facility] 04/27 06:46 Order name: Stool Culture [facility] 04/27 06:56 Order name: CBC Smear Scan; Complete Time: 09:03 EDMS 04/27 07:05 Order name: C.difficile [facility] Ag EDMS Administered Medications: 06:46 Drug: NS 0.9% IV 1000 ml IV at 1 bolus Per protocol; 1000 mL bolus Route: IV; Rate: 1 vc1 bolus; Site: right antecubital; 08:01 Follow up: Response: No adverse reaction; IV Status: Completed infusion rs5 06:47 Drug: Ondansetron IVP 4 mg IVP once; over 2 minutes Route: IVP; Site: right antecubital;vc1 06:55 Follow up: Response: No adverse reaction; Nausea is decreased vc1 06:54 Drug: NS 0.9% IV 1000 ml IV at 1 bolus Per protocol; 1000 mL bolus Route: IV; Rate: 1 vc1 bolus; Site: right antecubital; 08:01 Follow up: IV Status: Completed infusion rs5 06:54 Drug: Promethazine IVP 25 mg IVP once; add to second liter bolus {Note: diluted in 10cc vc1 NS.} Route: IVP; Site: right antecubital; 07:20 Follow up: Response: No adverse reaction; Nausea is decreased rs5 07:31 Drug: Famotidine IVP 20 mg IVP once; dilute with 10 mL 0.9% NaCl; give over 2 minutes rs5 Route: IVP; Site: right antecubital; 09:31 Follow up: Response: No adverse reaction rs5 Disposition Summary: 04/27/24 09:04 Discharge Ordered Notes: Location: Home ms3 Problem: new ms3 Symptoms: have improved ms3 Condition: Stable ms3 Diagnosis - Vomiting ms3 - Nausea with vomiting, unspecified ms3 - Diarrhea, unspecified ms3 - Dehydration ms3 Followup: elisa - With: Private Physician - When: 2 - 3 days - Reason: Recheck today's complaints, Re-evaluation by your physician Followup: elisa - With: Aiden Valiente MD - When: 2 - 3 days - Reason: Recheck today's complaints, Re-evaluation by your physician Discharge Instructions: - Discharge Summary Sheet elisa - Food Choices to Help Relieve Diarrhea, Adult elisa - Dehydration, Adult elisa - Diarrhea, Adult elisa - Nausea and Vomiting, Adult elisa - Nausea, Adult elisa - Nausea and Vomiting, Adult, [id number] elisa - Diarrhea, Adult, [id number] elisa - Rehydration, Adult elisa - Vomiting, Adult elisa Forms: - Medication Reconciliation Form ms3 - Antibiotic Education ms3 - Prescription Opioid Use ms3 - Patient Portal Instructions ms3 - Leadership Thank You Letter ms3 Prescriptions: - ondansetron 4 mg Oral Tablet,disintegrating - take 1 tablet ORAL route every 6 to 8 hours for 5 days; 20 tablet; Refills: 0, [facility] Product Selection Permitted - Pepcid 20 mg Oral Tablet - take 1 tablet ORAL route every 12 hours for 10 days; 20 tablet; Refills: 0, [facility] Product Selection Permitted - promethazine 25 mg Oral tablet - take 1 tablet ORAL route every 6 hours As needed; 20 tablet; Refills: 0, [facility] Product Selection Permitted - dicyclomine 20 mg Oral tablet - take 1 tablet ORAL route 4 times per day; 28 tablet; Refills: 0, Product [facility] Selection Permitted Signatures: Dispatcher [employer] EDJordin Harvey MD MD cha Sims, Marcus, DO DO ms3 Chelsea Ratliff, RN RN vc1 Jose Alfredo, RN RN rs5 Corrections: (The following items were deleted from the chart) 06:10 06:10 CBC+H.LAB.BRZ ordered. EDMS EDMS 06:10 06:10 COMPREHENSIVE METABOLIC PANEL+C.LAB.BRZ ordered. EDMS EDMS 06:10 06:10 LIPASE+C.LAB.BRZ ordered. EDMS EDMS 06:10 06:10 Urinalysis+U.LAB.BRZ ordered. EDMS EDMS 06:10 06:10 Test, Urine+UC.LAB.BRZ ordered. EDMS EDMS
[2024-04-27 09:41] VITALS: TEMP 98.4
[2024-04-27 09:52] VITALS: O2SAT 99
[2024-04-27 09:58] VITALS: BP 135/81
[2024-04-27 10:47] LABS: C.diff Antigen/Toxin Ag neg : Tox neg (NEG : NEG); CDIFF INTERNAL NEG CONTROL White Background (WHITE BKGD); STOOL CONSISTENCY Liquid/Semi-Solid
== END 2024-04-27 09:31 | disposition home or self-care (01) ==
LOC: ER 06:00
DX: R11.2 Nausea with vomiting, unspecified (principal); R19.7 Diarrhea, unspecified; E86.0 Dehydration
CPT/HCPCS: 96361; 87045; 85025; 81001; 36415; 89055; 81025; 87046; 87324; 83690; 80053; 96375; 96374; 99284; J2550; J2405; J7030 ×2